=== PATIENT | female | born 1950 | race Caucasian/White ===

== ENCOUNTER 2016-12-20 04:22 | Emergency (ER) | payer MEDICARE ==
[2016-12-20 04:27] VITALS: BP 127/96; PULSE 61; RESP 16; TEMP 98; O2SAT 100
--- NOTE | 2016-12-20 04:37 | ED PDOC ---
Upper Extremity Pain/Injury Time Seen by Provider: 12/20/16 04:25 Chief Complaint (Nursing): Trauma Chief Complaint (Provider): Left Shoulder Pain History Per: Patient History/Exam Limitations: no limitations Onset/Duration Of Symptoms: Other (1 hour WEEDER THINNER) Current Symptoms Are (Timing): Still Present Exacerbating Factor(s): Movement Additional Complaint(s): 66 year old female, past medical history of HTN, DM, dyslipidemia, hypothyroidism, and sleep apnea, presents to the ED for evaluation of left shoulder pain status post fall approximately 1 hour ago. She reports that she was standing and lost her balance landing on her left side. Since fall she has had shoulder pain and decreased range of motion. Patient also complaining of left knee discomfort. She has attempted to ice at home with little to no relief. Patient has a pacemaker and is status post cholecystectomy. Past Medical History Reviewed: Historical Data, Nursing Documentation, Vital Signs Vital Signs: Last Vital Signs Temp 98 F 12/20/16 04:24 Pulse 61 12/20/16 04:24 Resp 16 12/20/16 04:24 BP 127/96 H 12/20/16 04:24 Pulse Ox 100 12/20/16 04:24 - Medical History PMH: Asthma, Cardia Arrhythmia (Bradycardia), Diabetes (Diet controlled), Hypercholesterolemia, Hypothyroidism, Kidney Stones, Chronic Kidney Disease, Sleep Apnea Denies: HIV - Surgical History Surgical History: Cholecystectomy, Pacemaker Other surgeries: Gastric bypass - Family History Family History: States: No Known Family Hx - Social History Current smoker - smoking cessation education provided: No Ex-Smoker (has not smoked in the last 12 months): No Alcohol: None Drugs: Denies - Immunization History Hx Tetanus Toxoid Vaccination: No Hx Influenza Vaccination: No Hx Pneumococcal Vaccination: No - Home Medications Home Medications: Ambulatory Orders Medication Instructions Recorded Calcium Carbonate [Calcium] 600 mg PO DAILY 06/18/15 Esomeprazole Magnesium [Nexium] 40 mg PO DAILY 06/18/15 Gabapentin [Neurontin] 600 mg PO BID 06/18/15 Levothyroxine Sodium [Levoxyl] 25 mcg PO DAILY 06/18/15 Hydrochlorothiazide [HCTZ] 25 mg PO DAILY PRN 08/16/15 Linaclotide [Linzess] 290 mcg PO DAILY PRN 08/16/15 Multivitamin [Multi-Vitamin Daily] 1 tab PO DAILY 08/16/15 cycloSPORINE [Restasis] 1 drop EACHEYE BID 08/16/15 Biotin 1 cap PO DAILY 03/11/16 Diclofenac Sodium [Voltaren] 1 appl TOP BID PRN 03/11/16 Ergocalciferol (Vitamin D2) 50,000 unit PO QWK 03/11/16 [Vitamin D2] Rosuvastatin Calcium [Crestor] 10 mg PO HS 03/11/16 Timolol [Betimol] 1 drop EACHEYE DAILY 03/11/16 metFORMIN [glucOPHAGE] 500 mg PO DAILY 03/11/16 - Allergies Allergies/Adverse Reactions: Allergies Allergy/AdvReac Type Severity Reaction Status Date / Time Seafoods Allergy ITCHING Uncoded 08/16/15 12:20 Review of Systems Musculoskeletal: Positive for: Shoulder Pain Physical Exam - Reviewed Nursing Documentation Reviewed: Yes Vital Signs Reviewed: Yes - Physical Exam Appears: Positive for: Non-toxic, No Acute Distress Extremity: Positive for: Other (Point tenderness along left AC, No obvious deformity, Pain with both passive and active range of motion, Normal range of motion left knee) - ECG O2 Sat by Pulse Oximetry: 100 Medical Decision Making Medical Decision Making: Impression: 66 year old female with acute left shoulder injury Plan: Xrays Toradol Xray Left Shoulder: No acute findings. Xray Left Knee: No acute findings. Reviewed xray results with the patient. She feels comfortable being discharged home. Diagnosis: Left shoulder and left knee contusion Condition: Fair Scribe Attestation: Documented by Nnamdi Noland acting as a scribe for Kyle Sanchez MD. Scribe Attestation: All medical record entries made by the Scribe were at my direction and personally dictated by me. I have reviewed the chart and agree that the record accurately reflects my personal performance of the history, physical exam, medical decision making, and the department course for this patient. I have also personally directed, reviewed, and agree with the discharge instructions and disposition. Disposition - Clinical Impression Clinical Impression: Contracture, left shoulder, Strain of left knee - Patient ED Disposition Is Patient to be Admitted: No - Disposition Disposition: Routine/Home Disposition Time: 05:30 Condition: STABLE Instructions: Knee Sprain (ED), Shoulder Sprain (ED) Forms: [employer] (Swazi) Print Language: THAI
--- NOTE | 2016-12-20 11:25 | RAD ---
PROCEDURE: Radiographs of the Left Shoulder HISTORY: pain/fall COMPARISON: No prior. FINDINGS: BONES: Normal. No fracture. JOINTS: Normal. Glenohumeral and acromioclavicular joints preserved. No osteoarthritis. SOFT TISSUES: Normal. OTHER FINDINGS: None. IMPRESSION: No evidence of acute fracture or dislocation.
--- NOTE | 2016-12-20 11:28 | RAD ---
PROCEDURE: Left Knee Radiographs. HISTORY: Pain. COMPARISON: None. FINDINGS: BONES: Slight heterogeneous density noted at the proximal left fibula. The possibility of infiltrative lesion in the proximal left fibula is not totally excluded. No evidence of acute pathology P JOINTS: Normal. No osteoarthritis. JOINT EFFUSION: None. OTHER FINDINGS: None. IMPRESSION: Mild heterogeneous density noted at the proximal left foot below noted. No evidence of acute fracture or dislocation.
== END 2016-12-20 05:57 | disposition home or self-care (01) ==
LOC: H.ER 04:22
DX: M62.412 Contracture of muscle, left shoulder (principal); S83.92XA Sprain of unspecified site of left knee, initial encounter
CPT/HCPCS: 73030; 73562; 96372; 99283; J1885

== ENCOUNTER 2017-08-24 11:35 | Emergency (ER) | payer MEDICARE ==
[2017-08-24 12:05] VITALS: BP 125/60; PULSE 60; TEMP 98.2; O2SAT 96; BMI 36.0
[2017-08-24 12:21] VITALS: RESP 18
[2017-08-24 13:52] LABS: BASO # 0.1 K/uL (0.0-0.2); BASO % 1.4 % (0.0-2.0); EOS # 0.4 K/uL (0.0-0.7); EOS % 6.5 % (0.0-4.0); HEMOGLOBIN 13.9 g/dL (12.0-16.0); LYMPH # 2.2 K/uL (1.0-4.3); LYMPH % 37.7 % (20.0-40.0); MEAN CELL VOLUME 91.9 fl (81.0-99.0); MEAN CORPUSCULAR HEMOGLOBIN 30.9 pg (27.0-31.0); MEAN CORPUSCULAR HGB CONC 33.6 g/dL (33.0-37.0); MONO # 0.5 K/uL (0.0-0.8); MONO % 8.9 % (0.0-10.0); NEUT # 2.7 K/uL (1.8-7.0); NEUT % 45.5 % (50.0-75.0); NRBC % 0.2 % (0.0-0.0); RBC 4.49 Mil/uL (3.80-5.20); WHITE BLOOD COUNT 5.8 K/uL (4.8-10.8)
[2017-08-24 14:00] LABS: ALB/GLOB RATIO 1.1 (1.0-2.1); ALBUMIN 4.1 g/dL (3.5-5.0); ALT/SGPT 32 U/L (9-52); AST/SGOT 29 U/L (14-36); BLOOD UREA NITROGEN 23 mg/dl (7-17); CALCIUM 9.5 mg/dL (8.4-10.2); GFR AFRICAN-AMERICAN > 60; GFR NON-AFRICAN AMERICAN > 60
[2017-08-24 14:13] LABS: SQUAMOUS EPITHIAL 1 /hpf (0-5); URINE BACTERIA RARE (<OCC); URINE BILIRUBIN NEGATIVE (NEGATIVE); URINE BLOOD NEGATIVE (NEGATIVE); URINE CLARITY CLEAR (Clear); URINE COLOR YELLOW (YELLOW); URINE GLUCOSE (UA) NEG (Normal); URINE LEUKOCYTE ESTERASE NEG Leu/uL (Negative); URINE PROTEIN NEGATIVE (NEGATIVE); URINE UROBILINOGEN 0.2-1.0 mg/dL (0.2-1.0)
--- NOTE | 2017-08-24 14:42 | CT ---
PROCEDURE: CT HEAD WITHOUT CONTRAST. HISTORY: Dizziness COMPARISON: 08/16/2015. TECHNIQUE: Axial computed tomography images were obtained through the head/brain without intravenous contrast. Radiation dose: Total exam DLP = 870.08 mGy-cm. This CT exam was performed using one or more of the following dose reduction techniques: Automated exposure control, adjustment of the mA and/or kV according to patient size, and/or use of iterative reconstruction technique. FINDINGS: HEMORRHAGE: No intracranial hemorrhage. BRAIN: Rosenbaum-white matter differentiation is preserved. There is no mass, mass effect or abnormal extra-axial fluid collection. There is no territorial infarction. There are coarse atherosclerotic calcifications in the cavernous carotid arteries. VENTRICLES: There is mild age-related global parenchymal volume loss and proportionate enlargement of the ventricles and cortical sulci. CALVARIUM: The skull base and calvarium are normal. PARANASAL SINUSES: Predominantly clear. MASTOID AIR CELLS: Predominantly clear. OTHER FINDINGS: None. IMPRESSION: No acute intracranial abnormality. Mild age-related global parenchymal volume loss.
--- NOTE | 2017-08-24 15:04 | ED PDOC ---
HPI: Hypertension/Hypotension Time Seen by Provider: 08/24/17 12:41 Chief Complaint (Nursing): Dizziness/Lightheaded Chief Complaint (Provider): Dizziness History Per: Patient History/Exam Limitations: no limitations Current Symptoms Are (Timing): Still Present Associated Symptoms: denies: Chest Pain, Dyspnea, Blurred Vision, Focal Weakness , Headache Additional Complaint(s): 66 year old female presents to the ED complaining of chronic dizziness and concern for elevated blood pressure. She indicates that when she is dizzy, she experiences movement but she knows she isn't moving. Patient states that she has been measuring her blood pressure for the last 2 weeks and it has been fluctuating. The highest reading obtained was 187/86. She states she takes her prescribed HCTZ when she feels her HTN is elevated, and reports a dose yesterday and today which seemingly improved her BP readings. She saw her PMD for her dizziness recently and was given Meclizine but hasn't taken it since yesterday. She also saw her gore inserter on August 10 and was told everything is fine but is seeking a second opinion. Denies CP, SOB, H/A, weakness, numbness, fever, abdominal pain, nausea, vomiting, diarrhea, urinary symptoms, visual changes, incontinence. She reports she is prediabetic but her sugar is normally in the 90s when she checks it. PMD: [facility] Past Medical History Reviewed: Historical Data, Nursing Documentation, Vital Signs Vital Signs: Last Vital Signs Temp 98.2 F 08/24/17 12:18 Pulse 60 08/24/17 12:18 Resp 18 08/24/17 12:18 BP 125/60 08/24/17 12:18 Pulse Ox 96 08/24/17 12:18 - Medical History PMH: Asthma, Cardia Arrhythmia (Bradycardia), Diabetes (Diet controlled), GERD, HTN, Hypercholesterolemia, Hypothyroidism, Kidney Stones, Chronic Kidney Disease , Sleep Apnea - Surgical History Surgical History: Cholecystectomy, Pacemaker Other surgeries: x2, Liposuction - Family History Family History: States: Unknown Family Hx - Social History Current smoker - smoking cessation education provided: No Alcohol: None Drugs: Denies - Home Medications Home Medications: Ambulatory Orders Medication Instructions Recorded Calcium Carbonate [Calcium] 600 mg PO DAILY 06/18/15 Esomeprazole Magnesium [Nexium] 40 mg PO DAILY 06/18/15 Gabapentin [Neurontin] 600 mg PO BID 06/18/15 Levothyroxine Sodium [Levoxyl] 25 mcg PO DAILY 06/18/15 Hydrochlorothiazide [HCTZ] 25 mg PO DAILY PRN 08/16/15 Linaclotide [Linzess] 290 mcg PO DAILY PRN 08/16/15 Multivitamin [Multi-Vitamin Daily] 1 tab PO DAILY 08/16/15 cycloSPORINE [Restasis] 1 drop EACHEYE BID 08/16/15 Biotin 1 cap PO DAILY 03/11/16 Diclofenac Sodium [Voltaren] 1 appl TOP BID PRN 03/11/16 Ergocalciferol (Vitamin D2) 50,000 unit PO QWK 03/11/16 [Vitamin D2] Rosuvastatin Calcium [Crestor] 10 mg PO HS 03/11/16 Timolol [Betimol] 1 drop EACHEYE DAILY 03/11/16 metFORMIN [glucOPHAGE] 500 mg PO DAILY 03/11/16 - Allergies Allergies/Adverse Reactions: Allergies Allergy/AdvReac Type Severity Reaction Status Date / Time Seafoods Allergy ITCHING Uncoded 08/16/15 12:20 Review of Systems ROS Statement: Except As Marked, All Systems Reviewed And Found Negative Cardiovascular: Negative for: Chest Pain Respiratory: Negative for: Shortness of Breath Gastrointestinal: Negative for: Nausea, Vomiting, Abdominal Pain Genitourinary Female: Negative for: Dysuria, Hematuria Neurological: Positive for: Dizziness Physical Exam - Reviewed Nursing Documentation Reviewed: Yes Vital Signs Reviewed: Yes - Physical Exam Appears: Positive for: Well, Non-toxic, No Acute Distress Head Exam: Positive for: ATRAUMATIC, NORMOCEPHALIC Skin: Positive for: Normal Color, Warm, Dry Eye Exam: Positive for: EOMI, PERRL. Negative for: Nystagmus, Conjunctival injection ENT: Positive for: Normal ENT Inspection Neck: Positive for: Painless ROM, Supple Cardiovascular/Chest: Positive for: Regular Rate, Rhythm Respiratory: Positive for: Normal Breath Sounds (Respirations even and nonlabored, speaking in full sentences.). Negative for: Decreased Breath Sounds , Accessory Muscle Use, Wheezing, Respiratory Distress Gastrointestinal/Abdominal: Positive for: Bowel Sounds (active x4), Soft. Negative for: Tenderness, Mass, Distended, Guarding, Rebound, Asicites Back: Positive for: Normal Inspection. Negative for: L CVA Tenderness, R CVA Tenderness, Vertebral Tenderness Extremity: Positive for: Normal ROM. Negative for: Pedal Edema, Calf Tenderness Neurologic/Psych: Positive for: Alert, chart writer II-XII (grossly intact), Oriented (x3 ), Cerebellar Tests (intact), Gait (steady in ED). Negative for: Motor/Sensory Deficits, Aphasia, Facial Droop - Laboratory Results Result Diagrams: 08/24/17 13:47 08/24/17 13:47 - ECG ECG: Positive for: Interpreted By Me, Viewed By Me ECG Rhythm: Negative for: ST/T Changes (no ST elevation) Interpretation Of ECG: QTC of 470 Rate: 60 (Paced rhythm) O2 Sat by Pulse Oximetry: 96 (RA) Pulse Ox Interpretation: Normal Medical Decision Making Medical Decision Making: Initial Impression: Concern for elevated BP, dizziness Initial Plan: IV access CBC CMP ECG ED Urine dipstick Urine culture Glucose, blood, POC stat 1500 Labs reviewed. Meclizine 25mg PO ordered. Blood glucose: 64. Accucheck: 77. Patient given PO juice and tolerated well. Head CT reviewed, radiology report follows: PROCEDURE: CT HEAD WITHOUT CONTRAST. HISTORY: Dizziness COMPARISON: 08/16/2015. TECHNIQUE: Axial computed tomography images were obtained through the head/brain without intravenous contrast. Radiation dose: Total exam DLP = 870.08 mGy-cm. This CT exam was performed using one or more of the following dose reduction techniques: Automated exposure control, adjustment of the mA and/or kV according to patient size, and/or use of iterative reconstruction technique. FINDINGS: HEMORRHAGE: No intracranial hemorrhage. BRAIN: Rosenbaum-white matter differentiation is preserved. There is no mass, mass effect or abnormal extra-axial fluid collection. There is no territorial infarction. There are coarse atherosclerotic calcifications in the cavernous carotid arteries. VENTRICLES: There is mild age-related global parenchymal volume loss and proportionate enlargement of the ventricles and cortical sulci. CALVARIUM: The skull base and calvarium are normal. PARANASAL SINUSES: Predominantly clear. MASTOID AIR CELLS: Predominantly clear. OTHER FINDINGS: None. IMPRESSION: No acute intracranial abnormality. Mild age-related global parenchymal volume loss. 1540 Orthostatics obtained and WNL. On re-evaluation, patient reports improvement of symptoms. On exam, patient remains AAOx3, in no acute distress. Lungs clear to auscultation, cardiac RRR, abdomen soft, non-tender, repeat neuro exam shows no focal findings. Patient denies any dizziness, chest pain, SOB, abdominal pain, weakness/numbness, and/ or headache at present. Tolerating PO intake in ED without difficulty. VSS, stable for discharge. Lab/Diagnostic results d/w the patient in great detail. Diagnosis of acute on chronic dizziness, concern for elevated BP d/w the patient. Based on history, exam and diagnostic results, plan will be for outpatient follow up. Compliance with HTN medication stressed to patient. Patient instructed to follow-up with pmd / referral provided / the clinic in 1- 2 days without fail. Advised to continue current medications as prescribed. Return to the emergency room at any time for any new or worsening symptoms. Patient states she fully agrees with and understands discharge instructions. States that she agrees with the plan and disposition. Verbalized and repeated discharge instructions and plan. I have given the patient opportunity to ask any additional questions. Scribe Attestation: Documented by Hector Cruz acting as a scribe for Georgie Hinkle. Provider Scribe Attestation: All medical record entries made by the Scribe were at my direction and personally dictated by me. I have reviewed the chart and agree that the record accurately reflects my personal performance of the history, physical exam, medical decision making, and the department course for this patient. I have also personally directed, reviewed, and agree with the discharge instructions and disposition. Disposition - Clinical Impression Clinical Impression: Dizziness, Hypertension - Patient ED Disposition Is Patient to be Admitted: No Counseled Patient/Family Regarding: Studies Performed, Diagnosis, Need For Followup, Rx Given - Disposition Disposition: Routine/Home Disposition Time: 15:41 Condition: STABLE Additional Instructions: FOLLOW UP WITH PMD/CARDIO IN 1-2 DAYS WITHOUT FAIL. RETURN TO ED WITH ANY NEW OR WORSENING SYMPTOMS. CONTINUE CURRENT MEDICATIONS PRESCRIBED BY PMD/CARDIO. Instructions: High Blood Pressure in Adults, DASH Diet, Low Salt Diet, Medicines for High Blood Pressure, Dizziness, Nonvertigo, (DC) Forms: [employer] (Maldivian) Print Language: KAZAKH - POA Present On Arrival: None Results - Lab Results Lab Results: 08/24/17 08/24/17 08/24/17 13:47 13:47 13:47 WBC 5.8 RBC 4.49 Hgb 13.9 Hct 41.2 MCV 91.9 MCH 30.9 MCHC 33.6 RDW 14.0 Plt Count 104 L D MPV 11.0 Neut % (Auto) 45.5 L Lymph % (Auto) 37.7 [place] % (Auto) 8.9 Eos % (Auto) 6.5 H Baso % (Auto) 1.4 Neut # (Auto) 2.7 Lymph # (Auto) 2.2 [place] # (Auto) 0.5 Eos # (Auto) 0.4 Baso # (Auto) 0.1 Sodium 142 Potassium 4.2 Chloride 102 Carbon Dioxide 25 Anion Gap 19 BUN 23 H Creatinine 0.6 L Est GFR ( Amer) > 60 Est GFR (Non-Af Amer) > 60 POC Glucose (mg/dL) Random Glucose 64 L Calcium 9.5 Total Bilirubin 0.7 AST 29 ALT 32 Alkaline Phosphatase 71 Total Protein 7.9 Albumin 4.1 Globulin 3.8 Albumin/Globulin Ratio 1.1 Urine Color Yellow Urine Clarity Clear Urine pH 7.0 Ur Specific [place] 1.019 Urine Protein Negative Urine Glucose (UA) Neg Urine Ketones Negative Urine Blood Negative Urine Nitrate Negative Urine Bilirubin Negative Urine Urobilinogen 0.2-1.0 Ur Leukocyte Esterase Neg Urine RBC (Auto) 3 Urine Microscopic WBC 1 Ur Squamous Epith Cells 1 Urine Bacteria Rare 08/24/17 13:41 WBC RBC Hgb Hct MCV MCH MCHC RDW Plt Count MPV Neut % (Auto) Lymph % (Auto) [place] % (Auto) Eos % (Auto) Baso % (Auto) Neut # (Auto) Lymph # (Auto) [place] # (Auto) Eos # (Auto) Baso # (Auto) Sodium Potassium Chloride Carbon Dioxide Anion Gap BUN Creatinine Est GFR ( Amer) Est GFR (Non-Af Amer) POC Glucose (mg/dL) 77 Random Glucose Calcium Total Bilirubin AST ALT Alkaline Phosphatase Total Protein Albumin Globulin Albumin/Globulin Ratio Urine Color Urine Clarity Urine pH Ur Specific [place] Urine Protein Urine Glucose (UA) Urine Ketones Urine Blood Urine Nitrate Urine Bilirubin Urine Urobilinogen Ur Leukocyte Esterase Urine RBC (Auto) Urine Microscopic WBC Ur Squamous Epith Cells Urine Bacteria
--- NOTE | 2017-08-25 17:24 | CARD ---
APPROVED REPORT EKG Measurement Heart [id number] <Conclusion> Atrial-paced rhythm Right bundle branch block Abnormal ECG
== END 2017-08-24 16:20 | disposition home or self-care (01) ==
LOC: H.ER 11:35
DX: R42 Dizziness and giddiness (principal); I10 Essential (primary) hypertension; E03.9 Hypothyroidism, unspecified; E78.00 Pure hypercholesterolemia, unspecified; I12.9 Hypertensive chronic kidney disease with stage 1 through stage 4 chronic kidney disease, or unspecified chronic kidney disease; J45.909 Unspecified asthma, uncomplicated; Z79.84 Long term (current) use of oral hypoglycemic drugs; Z87.442 Personal history of urinary calculi; Z95.0 Presence of cardiac pacemaker